=== PATIENT | male | born 1980 | race Caucasian/White ===

== ENCOUNTER 2023-06-10 09:41 | Day surgery (SDC) | payer OTHER ==
[~2023-06-10] VITALS: Ht 182.9 cm; Wt 84.1 kg
[~2023-06-10 09:41] MED LIST: SODIUM CHLORIDE 0.9% 1,000 ML ONE
[2023-06-10] MEDS ORDERED: PROPOFOL 1% 20 ML VIAL IVP ONE (09:42)
[2023-06-10] MEDS ORDERED: LIDOCAINE/PF 2% 5 ML VIAL IM ONE (09:42)
[2023-06-10] MEDS ORDERED: SODIUM CHLORIDE 0.9% 1,000 ML IV ONE (11:30)
== END 2023-06-10 13:10 | disposition home or self-care (01) ==
LOC: SURGERY 09:41
PROVIDERS: ATTEND Internal Medicine Gastroenterology
DX: K64.8 Other hemorrhoids (principal); K60.2 Anal fissure, unspecified; F98.8 Other specified behavioral and emotional disorders with onset usually occurring in childhood and adolescence; E78.5 Hyperlipidemia, unspecified; Z98.890 Other specified postprocedural states; Z79.899 Other long term (current) drug therapy
CPT/HCPCS: 45378; J2704; J3490; J7030